=== PATIENT | male | born 1950 | race Caucasian/White ===

== ENCOUNTER → 2017-10-23 | Outpatient (CLI) | payer MEDICARE, OTHER ==
--- NOTE | 2017-10-23 08:53 | US ---
EXAMINATION TYPE: US liver DATE OF EXAM: 10/23/2017 COMPARISON: CT CLINICAL HISTORY: R94.5 Abnormal Results Of Liver Function Studies; on medication for allergy, takes Vitamin D EXAM MEASUREMENTS: Liver Length: 13.5 cm Gallbladder Wall: 0.2 cm CBD: 0.3 cm Right Kidney: 12.0 x 7.2 x 4.7 cm Pancreas: not visualized due to overlying bowel gas Liver: left lateal lobe cyst = 0.6 x 0.9 x 0.8cm; mild attenuation noted posteriorly. This most comm only relates to hepatic steatosis and appears mild in degree. This limits evaluation for underlying h epatic masses. Gallbladder: wnl Evidence for sonographic Hammonds's sign: No CBD: wnl Right Kidney: wnl IMPRESSION: 1. Mild heterogeneous echotexture of the hepatic parenchyma most commonly relating to hepatic steatos is. 2. Subcentimeter hepatic cyst. 3. No sonographic evidence of cholelithiasis or acute cholecystitis.
== END | disposition home or self-care (01) ==
LOC: RADUSWWP 07:14
PROVIDERS: ATTEND Internal Medicine Gastroenterology
DX: K76.89 Other specified diseases of liver (principal)
CPT/HCPCS: 76705

== ENCOUNTER → 2017-11-12 | Outpatient (CLI) | payer MEDICARE, OTHER ==
[2017-11-12 16:51] LABS: Alpha Fetoprotein, Tumor Mkr 2.9 ng/mL (0.0-7.9)
[2017-11-13 10:59] LABS: Hepatitis BE Antigen POS (Negative)
[2017-11-13 11:01] LABS: Hepatitis BE Antibody NEG (Negative)
== END | disposition home or self-care (01) ==
LOC: LABWHC1 10:53
PROVIDERS: ATTEND Physician Assistant
DX: B19.10 Unspecified viral hepatitis B without hepatic coma (principal)
CPT/HCPCS: 36415; 82105; 86704; 86706; 86707; 87340; 87350

== ENCOUNTER → 2017-11-19 | Outpatient (CLI) | payer MEDICARE, OTHER ==
[2017-11-19 12:48] LABS: Albumin 4.5 g/dL (3.5-5.0); Bilirubin, Delta 0.5 mg/dL (0.0-0.2); Bilirubin,Unconjugated 0.4 mg/dL (0.0-1.1); Total Bilirubin 0.9 mg/dL (0.2-1.3)
[2017-11-20 13:47] LABS: Hepatitis B Virus DNA DETECTED (Not detected); Log HBV IU/mL 8.54 (<1.00)
== END | disposition home or self-care (01) ==
LOC: LABWHC1 11:56
PROVIDERS: ATTEND Physician Assistant
DX: B19.10 Unspecified viral hepatitis B without hepatic coma (principal)
CPT/HCPCS: 36415; 80076; 87517

== ENCOUNTER → 2018-05-20 | Outpatient (CLI) | payer MEDICARE, OTHER ==
[2018-05-20 13:32] LABS: HCT 42.7 % (39.0-53.0); HGB 14.7 gm/dL (13.0-17.5); MCH 32.4 pg (25.0-35.0); MCHC 34.5 g/dL (31.0-37.0); MCV 93.8 fL (80.0-100.0); Mean Platelet Volume 8.2; Platelet Count 156 k/uL (150-450); RBC 4.55 m/uL (4.30-5.90); RDW 13.2 % (11.5-15.5)
[2018-05-20 13:54] LABS: Albumin 4.2 g/dL (3.5-5.0); Bilirubin, Delta 0.3 mg/dL (0.0-0.2); Bilirubin,Unconjugated 0.8 mg/dL (0.0-1.1); Total Bilirubin 1.1 mg/dL (0.2-1.3); Total Protein 7.4 g/dL (6.3-8.2)
[2018-05-21 13:29] LABS: Hepatitis BE Antigen POS (Negative)
[2018-05-23 07:29] LABS: Hepatitis B Virus DNA DETECTED (Not detected); Log HBV IU/mL 8.28 (<1.00)
== END | disposition home or self-care (01) ==
LOC: LABWHC1 12:17
PROVIDERS: ATTEND Physician Assistant
DX: B18.1 Chronic viral hepatitis B without delta-agent (principal)
CPT/HCPCS: 36415; 80076; 82105; 85027; 87350; 87517

== ENCOUNTER → 2018-08-23 | Outpatient (CLI) | payer MEDICARE, OTHER ==
[2018-08-23 11:25] LABS: HCT 44.1 % (39.0-53.0); HGB 14.5 gm/dL (13.0-17.5); MCH 30.8 pg (25.0-35.0); MCHC 32.8 g/dL (31.0-37.0); MCV 93.7 fL (80.0-100.0); Mean Platelet Volume 7.3; Platelet Count 173 k/uL (150-450); RBC 4.71 m/uL (4.30-5.90); RDW 13.1 % (11.5-15.5); WBC 7.8 k/uL (3.8-10.6)
[2018-08-23 16:27] LABS: Albumin 4.4 g/dL (3.80-4.90); Albumin/Globulin Ratio 1.76 (1.20-2.10); Bilirubin, Conjugated 0.3 mg/dL (0.20-0.40); Bilirubin,Unconjugated 0.7 mg/dL; Globulin 2.5 g/dL (1.6-3.3); Total Protein 6.9 g/dL (6.2-8.2)
[2018-08-26 16:38] LABS: Hepatitis B Virus DNA DETECTED (Not detected); Log HBV IU/mL 8.15 (<1.00)
[2018-08-27 13:10] LABS: Liver/Kidney Microsome Antibod 1.1 UNITS (<=20)
[2018-08-27 13:39] LABS: Hepatitis BE Antigen POS (Negative)
== END | disposition home or self-care (01) ==
LOC: LABWHC1 10:31
PROVIDERS: ATTEND Physician Assistant
DX: B18.1 Chronic viral hepatitis B without delta-agent (principal)
CPT/HCPCS: 36415; 80076; 82105; 85027; 86376; 87350; 87517

== ENCOUNTER → 2018-11-30 | Outpatient (CLI) | payer MEDICARE, OTHER ==
[2018-11-30 08:53] LABS: HCT 41.6 % (39.0-53.0); HGB 14.1 gm/dL (13.0-17.5); MCH 31.5 pg (25.0-35.0); MCV 92.8 fL (80.0-100.0); Mean Platelet Volume 8.1; Platelet Count 177 k/uL (150-450); RBC 4.49 m/uL (4.30-5.90); RDW 13.9 % (11.5-15.5); WBC 6.5 k/uL (3.8-10.6)
[2018-11-30 08:57] LABS: Prothrombin Time 10.8 sec (9.0-12.0)
[2018-11-30 16:42] LABS: Albumin 4.6 g/dL (3.80-4.90); Bilirubin, Conjugated 0.2 mg/dL (0.20-0.40); Bilirubin,Unconjugated 0.4 mg/dL; Globulin 2.3 g/dL (1.6-3.3); Total Bilirubin 0.6 mg/dL (0.3-1.2); Total Protein 6.9 g/dL (6.2-8.2)
[2018-11-30 17:01] LABS: Alpha Fetoprotein, Tumor Mkr <2.5 ng/mL (0.0-7.9)
[2018-11-30 21:12] LABS: Hepatitis B Core IgM Non-Reactive (Non-Reactive)
[2018-12-03 13:33] LABS: Hepatitis B Virus DNA DETECTED (Not detected); Log HBV IU/mL 3.71 (<1.00)
[2018-12-03 13:53] LABS: Hepatitis BE Antigen POS (Negative)
== END | disposition home or self-care (01) ==
LOC: LABWHC1 08:16
PROVIDERS: ATTEND Physician Assistant
DX: B18.1 Chronic viral hepatitis B without delta-agent (principal)
CPT/HCPCS: 36415; 80076; 82105; 85027; 85610; 86704; 86705; 87340; 87350; 87517

== ENCOUNTER → 2018-12-19 | Outpatient (CLI) | payer MEDICARE, OTHER ==
--- NOTE | 2018-12-19 10:00 | US ---
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 Chronic viral hep B EXAM MEASUREMENTS: Liver Length: 14.4 cm Gallbladder Wall: 0.2 cm CBD: 0.5 cm Right Kidney: 12.2 x 5.1 x 5.7 cm Pancreas: obscured by overlying midline bowel gas Liver: course echotexture, 1.1cm cyst left lobe Gallbladder: wnl Evidence for sonographic Hammonds's sign: no CBD: wnl Right Kidney: wnl IMPRESSION: 1. Small simple cyst left lobe liver. There is a coarse echo pattern of liver which can be seen with fatty infiltration, hepatitis or diffuse hepatocellular disease.
== END | disposition home or self-care (01) ==
LOC: RADUSWWP 09:28
DX: K76.89 Other specified diseases of liver (principal); B18.1 Chronic viral hepatitis B without delta-agent
CPT/HCPCS: 76705

== ENCOUNTER → 2019-06-02 | Outpatient (CLI) | payer MEDICARE, OTHER ==
[2019-06-02 08:41] LABS: HCT 42.4 % (39.0-53.0); HGB 14.7 gm/dL (13.0-17.5); MCH 32.1 pg (25.0-35.0); MCHC 34.7 g/dL (31.0-37.0); MCV 92.4 fL (80.0-100.0); Mean Platelet Volume 6.7; Platelet Count 181 k/uL (150-450); RBC 4.59 m/uL (4.30-5.90); RDW 12.6 % (11.5-15.5); WBC 6.8 k/uL (3.8-10.6)
[2019-06-02 08:45] LABS: INR 0.9 (<1.2); Prothrombin Time 10.2 sec (9.0-12.0)
[2019-06-02 16:51] LABS: Albumin 4.8 g/dL (3.80-4.90); Albumin/Globulin Ratio 2.18 (1.60-3.17); Bilirubin, Conjugated 0.3 mg/dL (0.20-0.40); Bilirubin,Unconjugated 0.5 mg/dL; Globulin 2.2 g/dL (1.6-3.3); Total Bilirubin 0.8 mg/dL (0.2-1.2)
[2019-06-02 16:52] LABS: Alpha Fetoprotein, Tumor Mkr <2.5 ng/mL (0.0-7.9)
[2019-06-02 21:30] LABS: Hepatitis B Core IgM Non-Reactive (Non-Reactive)
[2019-06-03 13:11] LABS: Hepatitis BE Antigen POS (Negative)
[2019-06-03 14:55] LABS: Hepatitis B Surface Antigen Reactive (Non-Reactive)
[2019-06-03 16:18] LABS: Hepatitis B Virus DNA DETECTED (Not detected); Hepatitis B Virus DNA, Quant <10 IU/mL (<10); Log HBV IU/mL <1.00 (<1.00)
== END | disposition home or self-care (01) ==
LOC: LABWHC1 07:58
PROVIDERS: ATTEND Physician Assistant
DX: B18.1 Chronic viral hepatitis B without delta-agent (principal)
CPT/HCPCS: 36415; 80076; 82105; 85027; 85610; 86704; 86705; 87340; 87350; 87517

== ENCOUNTER → 2019-12-01 | Outpatient (CLI) | payer MEDICARE, OTHER ==
[2019-12-01 12:15] LABS: HCT 42.8 % (39.0-53.0); HGB 14.4 gm/dL (13.0-17.5); MCH 31.7 pg (25.0-35.0); MCHC 33.7 g/dL (31.0-37.0); Mean Platelet Volume 8.4; Platelet Count 160 k/uL (150-450); RBC 4.55 m/uL (4.30-5.90); RDW 12.6 % (11.5-15.5); WBC 6.7 k/uL (3.8-10.6)
[2019-12-01 12:23] LABS: Prothrombin Time 10.6 sec (9.0-12.0)
[2019-12-01 18:45] LABS: African American GFR (CKD) 100.6 (60.0-200.0); Albumin 4.6 g/dL (3.80-4.90); Bilirubin, Conjugated 0.3 mg/dL (0.20-0.40); Bilirubin,Unconjugated 0.5 mg/dL; Globulin 2.3 g/dL (1.6-3.3); Non-African American GFR(CKD) 86.8 (60.0-200.0); Total Bilirubin 0.8 mg/dL (0.2-1.2); Total Protein 6.9 g/dL (6.2-8.2)
[2019-12-01 18:58] LABS: Alpha Fetoprotein, Tumor Mkr <2.5 ng/mL (0.0-7.9)
[2019-12-02 13:03] LABS: Hepatitis B Surface Antigen Reactive (Non-Reactive)
== END | disposition home or self-care (01) ==
LOC: LABWHC1 11:40
PROVIDERS: ATTEND Internal Medicine Gastroenterology
DX: B18.1 Chronic viral hepatitis B without delta-agent (principal)
CPT/HCPCS: 36415; 80076; 82105; 82565; 84520; 85027; 85610; 86704; 87340; 87350; 87517

== ENCOUNTER → 2020-02-03 | Outpatient (CLI) | payer MEDICARE, OTHER ==
--- NOTE | 2020-02-03 11:09 | US ---
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 Chronic Hepatitis EXAM MEASUREMENTS: Liver Length: 13.9 cm Gallbladder Wall: 0.3 cm CBD: 0.4 cm Right Kidney: 11.9 x 3.8 x 5.2 cm Pancreas: Obscured by bowel gas Liver: cystic area left lobe = 1.0cm Gallbladder: no evidence of hydronephrosis Evidence for sonographic Hammonds's sign: no CBD: appears wnl Right Kidney: no evidence of hydronephrosis IMPRESSION: Hepatic cysts.
== END | disposition home or self-care (01) ==
LOC: RADUSWWP 10:08
PROVIDERS: ATTEND Internal Medicine Gastroenterology
DX: K76.89 Other specified diseases of liver (principal); B18.1 Chronic viral hepatitis B without delta-agent
CPT/HCPCS: 76705

== ENCOUNTER → 2020-06-28 | Outpatient (CLI) | payer MEDICARE, OTHER ==
[2020-06-28 12:49] LABS: HCT 44.8 % (39.0-53.0); HGB 15.4 gm/dL (13.0-17.5); MCH 32.2 pg (25.0-35.0); MCHC 34.4 g/dL (31.0-37.0); MCV 93.5 fL (80.0-100.0); Mean Platelet Volume 8.4; Platelet Count 182 k/uL (150-450); RBC 4.79 m/uL (4.30-5.90); RDW 12.6 % (11.5-15.5); WBC 7.4 k/uL (3.8-10.6)
[2020-06-28 13:04] LABS: Prothrombin Time 10.1 sec (9.0-12.0)
[2020-06-28 18:30] LABS: Albumin 4.5 g/dL (3.80-4.90); Albumin/Globulin Ratio 1.96 (1.60-3.17); Bilirubin, Conjugated 0.3 mg/dL (0.20-0.40); Bilirubin,Unconjugated 0.4 mg/dL; Globulin 2.3 g/dL (1.6-3.3); Total Bilirubin 0.7 mg/dL (0.2-1.2); Total Protein 6.8 g/dL (6.2-8.2)
[2020-06-28 18:54] LABS: Alpha Fetoprotein, Tumor Mkr <2.5 ng/mL (0.0-7.9)
[2020-06-28 22:56] LABS: Hepatitis B Core IgM Non-Reactive (Non-Reactive)
[2020-06-29 13:11] LABS: Hepatitis B Surface Antigen Reactive (Non-Reactive)
== END | disposition home or self-care (01) ==
LOC: LABWHC1 09:48
PROVIDERS: ATTEND Physician Assistant
DX: B18.1 Chronic viral hepatitis B without delta-agent (principal)
CPT/HCPCS: 36415; 80076; 82105; 85027; 85610; 86704; 86705; 87340; 87350

== ENCOUNTER → 2020-12-06 | Outpatient (CLI) | payer MEDICARE ==
--- NOTE | 2020-12-06 10:00 | US ---
EXAMINATION TYPE: US liver DATE OF EXAM: 12/06/2020 COMPARISON: 02/03/2020 CLINICAL HISTORY: Chronic Hep B B18.1. Patient stated is in remission for Hepatitis EXAM MEASUREMENTS: Liver Length: 15.1 cm Gallbladder Wall: 0.2 cm CBD: 0.3 cm Right Kidney: 12.0 x 5.4 x 4.8 cm Pancreas: hyperechoic with tail obscured by overlying bowel gas Liver: right lobe attenuated posteriorly; small left lobe cyst seen = 0.9 x 1.0 x 0.9cm Gallbladder: wnl Evidence for sonographic Hammonds's sign: no CBD: wnl Right Kidney: No hydronephrosis or masses seen IMPRESSION: 1. Coarsened echo pattern to the liver can be associated with hepatic steatosis or hepatitis correlat e clinically. 2. Simple hepatic cyst
== END | disposition home or self-care (01) ==
LOC: RADUSWWP 09:13
PROVIDERS: ATTEND Internal Medicine Gastroenterology
DX: K76.89 Other specified diseases of liver (principal)
CPT/HCPCS: 76705

== ENCOUNTER → 2020-12-31 | Outpatient (CLI) | payer MEDICARE ==
[2020-12-31 23:18] LABS: HCT 45.7 % (39.6-50.0); HGB 15.1 g/dL (13.0-17.0); MCH 30.9 pg (27.0-32.0); MCV 93.5 fL (80.0-97.0); Mean Platelet Volume 11.6 fL (9.5-12.2); Platelet Count 214 X 10*3/uL (140-440); RBC 4.89 X 10*6/uL (4.40-5.60); RDW 12.1 % (11.5-14.5); WBC 8.53 X 10*3/uL (4.50-10.00)
[2021-01-01 02:03] LABS: INR 0.94 (0.90-1.11); Prothrombin Time 10.3 sec (9.9-11.9)
[2021-01-01 06:09] LABS: Albumin 5.3 g/dL (3.80-4.90); Albumin/Globulin Ratio 2.12 (1.60-3.17); Bilirubin, Conjugated 0.3 mg/dL (0.20-0.40); Bilirubin,Unconjugated 0.6 mg/dL; Globulin 2.5 g/dL (1.6-3.3); Total Bilirubin 0.9 mg/dL (0.3-1.2); Total Protein 7.8 g/dL (6.2-8.2)
[2021-01-01 10:22] LABS: Alpha Fetoprotein, Tumor Mkr <2.5 ng/mL (0.0-7.9)
[2021-01-04 04:00] LABS: Hepatitis BE Antigen Nonreactive (Nonreacitve)
[2021-01-04 13:55] LABS: Hepatitis B Surface Antigen Reactive (Non-Reactive)
[2021-01-06 14:01] LABS: Hepatitis B Virus DNA Not detected (Not detected); Hepatitis B Virus DNA, Quant <10 IU/mL (<10); Log HBV IU/mL <1.00 (<1.00)
== END | disposition home or self-care (01) ==
LOC: LABWHC1 14:48
PROVIDERS: ATTEND Physician Assistant
DX: B18.1 Chronic viral hepatitis B without delta-agent (principal)
CPT/HCPCS: 36415; 80076; 82105; 85027; 85610; 86704; 87340; 87350; 87517

== ENCOUNTER → 2021-07-27 | Outpatient (CLI) | payer MEDICARE ==
[2021-07-27 18:15] LABS: HCT 44.3 % (39.6-50.0); HGB 14.6 g/dL (13.0-17.0); MCH 31.1 pg (27.0-32.0); MCV 94.3 fL (80.0-97.0); Mean Platelet Volume 11.2 fL (9.5-12.2); Platelet Count 181 X 10*3/uL (140-440); RDW 12.4 % (11.5-14.5); WBC 8.91 X 10*3/uL (4.50-10.00)
[2021-07-27 18:40] LABS: INR 0.96 (0.90-1.11); Prothrombin Time 10.9 sec (9.9-11.9)
[2021-07-27 19:49] LABS: ALT 12 U/L (10-49); AST 20 U/L (14-35); Albumin 4.9 g/dL (3.8-4.9); Albumin/Globulin Ratio 2.08 (1.60-3.17); Bilirubin, Conjugated <0.20 mg/dL (0.20-0.40); Globulin 2.3 g/dL (1.6-3.3); Total Protein 7.2 g/dL (6.2-8.2)
[2021-07-27 19:50] LABS: Alkaline Phosphatase 80 U/L (41-126)
[2021-07-27 20:02] LABS: Hepatitis B Core IgM Nonreactive (Nonreactive); Hepatitis B Surface AB- Quant 93.2 mIU/mL; Hepatitis B Surface Antibody Reactive (Nonreactive)
[2021-07-27 23:27] LABS: Hepatitis B Surface Antigen Confirmed reactive (Nonreactive)
[2021-07-28 00:33] LABS: Alpha Fetoprotein, Tumor Mkr <1.82 ng/mL (0.00-7.90)
[2021-07-28 06:44] LABS: Hepatitis BE Antibody REACTIVE (Nonreactive); Hepatitis BE Antigen Nonreactive (Nonreacitve)
== END | disposition home or self-care (01) ==
LOC: LABWHC1 11:04
PROVIDERS: ATTEND Nurse Practitioner Family
DX: B18.1 Chronic viral hepatitis B without delta-agent (principal)
CPT/HCPCS: 36415; 80076; 82105; 85027; 85610; 86704; 86705; 86706; 86707; 87340; 87350; 87517

== ENCOUNTER → 2021-08-26 | Outpatient (CLI) | payer MEDICARE ==
--- NOTE | 2021-08-26 08:52 | US ---
EXAMINATION TYPE: US liver DATE OF EXAM: 08/26/2021 COMPARISON: CT 2014. Prior ultrasound December 06, 2020 CLINICAL HISTORY: B18.1 Chronic viral hepatitis B without delta. chronic hepatitis EXAM MEASUREMENTS: Liver Length: 13.7 cm Gallbladder Wall: 0.2 cm CBD: 0.4 cm Right Kidney: 12.5 x 4.2 x 4.7 cm Pancreas: Obscured by bowel gas Liver: cystic area left lobe = 0.9 x 0.9 x 0.9cm Gallbladder: no evidence of stones Evidence for sonographic Hammonds's sign: no CBD: appears wnl Right Kidney: no evidence of hydronephrosis Visualized liver redemonstrated heterogeneously hyperechoic. Incidental subcentimeter thin-walled cys t in the left hepatic lobe is redemonstrated. No new mass or ductal dilatation seen on images saved. No new surrounding ascites. Gallbladder has distended margins without intraluminal shadowing mobile g allstones. No right-sided hydronephrosis. IMPRESSION: Heterogeneous hyperechoic appearance of liver consistent with diffuse fatty infiltration and/or underlying hepatocellular disease redemonstrated. No significant change from prior studies.
== END | disposition home or self-care (01) ==
LOC: RADUSWWP 08:14
PROVIDERS: ATTEND Internal Medicine Gastroenterology
DX: K76.0 Fatty (change of) liver, not elsewhere classified (principal)
CPT/HCPCS: 76705

== ENCOUNTER → 2022-02-03 | Outpatient (CLI) | payer MEDICARE ==
[2022-02-03 19:09] LABS: HCT 43.3 % (39.6-50.0); HGB 14.1 g/dL (13.0-17.0); MCH 30.9 pg (27.0-32.0); MCHC 32.6 g/dL (32.0-37.0); MCV 94.7 fL (80.0-97.0); Mean Platelet Volume 11.7 fL (9.5-12.2); NRBC Per 100 WBC 0 /100 WBCS (0.0-0.0); Platelet Count 190 X 10*3/uL (140-440); RBC 4.57 X 10*6/uL (4.40-5.60); RDW 12.8 % (11.5-14.5); WBC 7.92 X 10*3/uL (4.50-10.00)
[2022-02-03 19:46] LABS: ALT 11 U/L (10-49); AST 20 U/L (14-35); Albumin 4.7 g/dL (3.8-4.9); Albumin/Globulin Ratio 1.88 (1.60-3.17); Alkaline Phosphatase 89 U/L (41-126); Bilirubin, Conjugated <0.20 mg/dL (0.20-0.40); Globulin 2.5 g/dL (1.6-3.3); Total Protein 7.2 g/dL (6.2-8.2)
[2022-02-03 19:53] LABS: INR 0.96 (0.90-1.11); Prothrombin Time 10.6 sec (9.9-11.9)
[2022-02-03 20:53] LABS: Hepatitis B Surface Antigen Confirmed reactive (Nonreactive)
[2022-02-03 21:03] LABS: Alpha Fetoprotein, Tumor Mkr <1.82 ng/mL (0.00-7.90)
== END | disposition home or self-care (01) ==
LOC: LABWHC1 11:38
PROVIDERS: ATTEND Internal Medicine Gastroenterology
DX: B18.1 Chronic viral hepatitis B without delta-agent (principal)
CPT/HCPCS: 36415; 80076; 82105; 85027; 85610; 87340

== ENCOUNTER 2022-04-30 13:56 | Emergency (ER) | payer MEDICARE ==
[2022-04-30 14:11] VITALS: TEMP 98.1
[2022-04-30] MEDS ORDERED: LIDOCAINE URO-JET JELLY 2% 5 ML KIT URETHRAL ONE (14:21)
--- NOTE | 2022-04-30 14:59 | ED ---
Male Urogenital HPI - General Chief complaint: Urogenital Stated complaint: Unable to urinate Time Seen by Provider: 04/30/22 14:10 Source: patient, RN notes reviewed Mode of arrival: ambulatory Limitations: no limitations - History of Present Illness Initial comments: 71-year-old male presents emergency Department with chief complaint of unable to urinate. Patient states that he has not urinated all day states has urgency and pressure lower abdomen. Patient states that this happened after surgery before. He has resisted seeing urology as he was told his PSA was elevated. Patient states that he did follow-up they did not find anything concerning. Patient does notice is had some dribbling, decreased stream. Patient denies any fevers chills no trauma patient offers no other complaints. - Related Data Home Medications Medication Instructions Recorded Confirmed Cholecalciferol [Vitamin D3 (25 1,000 unit PO DAILY 05/25/15 03/24/22 Mcg = 1000 Iu)] Multivit-Min/FA/Lycopen/Lutein 1 tab PO DAILY 05/25/15 03/24/22 [Centrum Silver Tablet] Entecavir 0.5 mg PO 2330 03/22/22 03/24/22 Previous Rx's Medication Instructions Recorded Tamsulosin [Flomax] 0.4 mg PO DAILY #14 cap 04/30/22 Allergies Allergy/AdvReac Type Severity Reaction Status Date / Time No Known Allergies Allergy Verified 04/30/22 14:11 Review of Systems ROS Statement: Those systems with pertinent positive or pertinent negative responses have been documented in the HPI. ROS Other: All systems not noted in ROS Statement are negative. Past Medical History Past Medical History: GERD/Reflux, Osteoarthritis (OA) Additional Past Medical History / Comment(s): Other HX: sepsis from appendicitis 05/2015, HEART MURMER, [place], History of Any Multi-Drug Resistant Organisms: None Reported Past Surgical History: Adenoidectomy, Tonsillectomy Additional Past Surgical History / Comment(s): Lap hector fundoplasty with ventral hernia repair with mesh. LEFT FOOT SURGERY-LESION REMOVED Past Anesthesia/Blood Transfusion Reactions: No Reported Reaction Past Psychological History: No Psychological Hx Reported Smoking Status: Former smoker Past Alcohol Use History: None Reported Past Drug Use History: None Reported - Past Family History Father Family Medical History: CVA/TIA Additional Family Medical History / Comment(s): PACEMAKER. Father at 87yrs. Mother Family Medical History: No Reported History, Dementia Additional Family Medical History / Comment(s): AGE 96 General Exam Limitations: no limitations General appearance: alert, in no apparent distress Head exam: Present: atraumatic, normocephalic, normal inspection Respiratory exam: Present: normal lung sounds bilaterally. Absent: respiratory distress, wheezes, rales, rhonchi, stridor Cardiovascular Exam: Present: normal rhythm, tachycardia, normal heart sounds. Absent: systolic murmur, diastolic murmur, rubs, gallop, clicks GI/Abdominal exam: Present: soft, distended, tenderness, normal bowel sounds. Absent: guarding, rebound, rigid Back exam: Absent: CVA tenderness (R), CVA tenderness (L) Course Vital Signs 04/30/22 14:06 Temperature 98.1 F Pulse Rate 124 H Respiratory 16 Rate Blood Pressure 140/101 O2 Sat by Pulse 98 Oximetry Medical Decision Making - Medical Decision Making 71-year-old male presents from for unable to urinate. Patient did have Seaman catheter inserted with no complications patient had relief of symptoms. Patient will be discharged with Seaman catheter, Flomax and follow-up with urology as he seen in the past - Lab Data Lab Results 04/30/22 Range/Units 14:39 Urine Color Light Yellow Urine Appearance Clear (Clear) Urine pH 5.0 (5.0-8.0) Ur Specific [place] 1.012 (1.001-1.035) Urine Protein Negative (Negative) Urine Glucose (UA) Negative (Negative) Urine Ketones Negative (Negative) Urine Blood Small H (Negative) Urine Nitrite Negative (Negative) Urine Bilirubin Negative (Negative) Urine Urobilinogen <2.0 (<2.0) mg/dL Ur Leukocyte Esterase Negative (Negative) Urine RBC 9 H (0-5) /hpf Urine WBC 1 (0-5) /hpf Urine Mucus Rare H (None) /hpf Disposition Clinical Impression: Urinary retention Disposition: HOME SELF-CARE Condition: Stable Instructions (If sedation given, give patient instructions): Urinary Retention in Men (ED) Additional Instructions: Please return to the Emergency Department if symptoms worsen or any other concerns. Prescriptions: Tamsulosin [Flomax] 0.4 mg PO DAILY #14 cap Is patient prescribed a controlled substance at d/c from ED?: No Referrals: Angelica Block III, MD [Primary Care Provider] - 1-2 days Time of Disposition: 15:31
[2022-04-30 15:15] LABS: Appearance,Urine Clear (Clear); Bilirubin,Urine Negative (Negative); Blood,Urine Small (Negative); Color,Urine Light Yellow; Glucose,Urine (UA) Negative (Negative); Ketones,Urine Negative (Negative); Leukocyte Esterase,Urine Negative (Negative); Mucus,Urine Rare /hpf; Nitrite,Urine Negative (Negative); Protein,Urine Negative (Negative); RBC,Urine 9 /hpf (0-5); Specific Gravity,Urine 1.012 (1.001-1.035); Urobilinogen,Urine <2.0 mg/dL (<2.0); WBC,Urine 1 /hpf (0-5)
[2022-04-30 17:54] VITALS: BP 152/94; PULSE 90; RESP 18
== END 2022-04-30 17:00 | disposition home or self-care (01) ==
LOC: EC 13:56
DX: R33.9 Retention of urine, unspecified (principal); K21.9 Gastro-esophageal reflux disease without esophagitis; Z86.73 Personal history of transient ischemic attack (TIA), and cerebral infarction without residual deficits; Z87.891 Personal history of nicotine dependence
CPT/HCPCS: 51702; 81001; 99283

== ENCOUNTER → 2022-07-26 | Outpatient (CLI) | payer MEDICARE ==
--- NOTE | 2022-07-26 09:28 | US ---
EXAMINATION TYPE: US liver DATE OF EXAM: 07/26/2022 COMPARISON: NONE CLINICAL HISTORY: B18.1 CHRONIC VIRAL HEPATITIS B. Chronic Hepatitis TECHNIQUE: Multiple sonographic images of the right upper quadrant are obtained. FINDINGS: EXAM MEASUREMENTS: Liver Length: 16.1 cm Gallbladder Wall: 0.2 cm CBD: 0.4 cm Right Kidney: 11.7 x 5.7 x 4.6 cm BOTTLE CARRIER NOTES: *Technical limitations due to large amount of overlying bowel content Pancreas: Obscured by bowel gas Liver: cystic area left lobe = 1.2 x 0.9 x 1.0cm Gallbladder: stones noted Evidence for sonographic Hammonds's sign: no CBD: limited evaluation Right Kidney: no evidence of hydronephrosis IMPRESSION: 1. Uncomplicated cholelithiasis
== END | disposition home or self-care (01) ==
LOC: RADUSWWP 07:30
PROVIDERS: ATTEND Internal Medicine Gastroenterology
DX: K80.20 Calculus of gallbladder without cholecystitis without obstruction (principal); B18.1 Chronic viral hepatitis B without delta-agent
CPT/HCPCS: 76705

== ENCOUNTER → 2022-08-09 | Outpatient (CLI) | payer MEDICARE ==
[2022-08-09 18:29] LABS: HCT 44.8 % (39.6-50.0); HGB 14.5 g/dL (13.0-17.0); MCH 30.3 pg (27.0-32.0); MCHC 32.4 g/dL (32.0-37.0); MCV 93.7 fL (80.0-97.0); Mean Platelet Volume 11.1 fL (9.5-12.2); NRBC Per 100 WBC 0 /100 WBCS (0.0-0.0); Platelet Count 197 X 10*3/uL (140-440); RBC 4.78 X 10*6/uL (4.40-5.60); RDW 12.5 % (11.5-14.5); WBC 8.59 X 10*3/uL (4.50-10.00)
[2022-08-09 19:28] LABS: Albumin 4.8 g/dL (3.8-4.9); Albumin/Globulin Ratio 2.01 (1.60-3.17); Bilirubin, Conjugated 0.27 mg/dL (0.20-0.40); Bilirubin,Unconjugated 0.64 mg/dL (0.20-1.00); Globulin 2.4 g/dL (1.6-3.3); Total Bilirubin 0.9 mg/dL (0.30-1.20); Total Protein 7.1 g/dL (6.2-8.2)
[2022-08-09 19:36] LABS: INR 0.94 (0.90-1.11); Prothrombin Time 10.6 sec (9.9-11.9)
[2022-08-09 20:50] LABS: Hepatitis B Surface Antigen Confirmed reactive (Nonreactive)
[2022-08-09 21:11] LABS: Alpha Fetoprotein, Tumor Mkr <1.82 ng/mL (0.00-7.90)
== END | disposition home or self-care (01) ==
LOC: LABWHC1 13:22
PROVIDERS: ATTEND Nurse Practitioner Family
DX: B18.1 Chronic viral hepatitis B without delta-agent (principal)
CPT/HCPCS: 36415; 80076; 82105; 85027; 85610; 87340

== ENCOUNTER → 2022-08-25 | Outpatient (CLI) | payer MEDICARE | END | disposition home or self-care (01) | LOC: LABWHC1 13:03 | PROVIDERS: ATTEND Urology | DX: R97.20 Elevated prostate specific antigen [PSA] (principal) | CPT/HCPCS: 36415; 84153 ==

== ENCOUNTER → 2023-02-05 | Outpatient (CLI) | payer MEDICARE ==
--- NOTE | 2023-02-05 10:42 | US ---
EXAMINATION TYPE: US liver DATE OF EXAM: 02/05/2023 COMPARISON: 07/26/2022 CLINICAL INDICATION: Male, 72 years old with history of B18.1 chronic viral hep B wo delta-agent; Chr onic Hep B TECHNIQUE: Multiple sonographic images of the right upper quadrant are obtained. FINDINGS: EXAM MEASUREMENTS: Liver Length: 15.8 cm Gallbladder Wall: 0.2 cm CBD: 0.5 cm Right Kidney: 12.7 x 6.0 x 5.6 cm DYNAMOMETER REPAIRER NOTES: Pancreas: Obscured by bowel gas Liver: Cyst left lobe as visualized on prior= 1.1 x 0.9 x 1.3 cm, stable. Calcification left lobe= 0 .4 cm. Posterior shadowing is evident. Liver has coarse echotexture Gallbladder: Multiple, mobile gallstones as visualized on prior Evidence for sonographic Hammonds's sign: No CBD: wnl Right Kidney: wnl IMPRESSION: 1. Hepatic cyst 2. Hepatic calcification. 3. Cholelithiasis
== END | disposition home or self-care (01) ==
LOC: RADUSWWP 08:55
PROVIDERS: ATTEND Internal Medicine Gastroenterology
DX: B18.1 Chronic viral hepatitis B without delta-agent (principal); K76.89 Other specified diseases of liver; K80.20 Calculus of gallbladder without cholecystitis without obstruction
CPT/HCPCS: 76705

== ENCOUNTER → 2023-02-08 | Outpatient (CLI) | payer MEDICARE ==
[2023-02-08 12:38] LABS: Prothrombin Time 10.3 sec (9.0-12.0)
[2023-02-08 16:30] LABS: HCT 43.7 % (39.6-50.0); HGB 14.7 d/dL (12.0-15.0); MCH 31.4 pg (27.0-32.0); MCHC 33.6 d/dL (32.0-37.0); MCV 93.4 FL (80.0-97.0); Mean Platelet Volume 11.3 FL (9.5-12.2); NRBC Per 100 WBC 0 X 10*3/uL (0.00-0.01); Platelet Count 199 X 10*3/uL (140-440); RBC 4.68 X 10*6/uL (4.40-5.60); RDW 12.5 % (11.5-14.5); WBC 7.85 X 10*3/uL (4.50-10.00)
[2023-02-08 17:09] LABS: Albumin 4.6 d/dL (3.8-4.9); Albumin/Globulin Ratio 1.84 Ratio (1.60-3.17); Bilirubin, Conjugated 0.21 mg/dL (0.20-0.40); Bilirubin,Unconjugated 0.49 mg/dL (0.20-1.00); Globulin 2.5 d/dL (1.6-3.3); Total Bilirubin 0.7 mg/dL (0.3-1.2); Total Protein 7.1 d/dL (6.2-8.2)
[2023-02-08 18:29] LABS: Alpha Fetoprotein, Tumor Mkr <3.00 ng/mL (0.00-7.90)
[2023-02-08 19:42] LABS: Hepatitis B Surface Antigen Conf_React
[2023-02-09 14:11] LABS: Hepatitis B Virus DNA Not detected (Not detected); Hepatitis B Virus DNA, Quant <10 IU/mL (<10); Log HBV IU/mL <1.00 (<1.00)
== END | disposition home or self-care (01) ==
LOC: LABWHC1 11:41
PROVIDERS: ATTEND Internal Medicine Cardiovascular Disease
DX: B18.1 Chronic viral hepatitis B without delta-agent (principal)
CPT/HCPCS: 36415; 80076; 82105; 85027; 85610; 87340; 87517

== ENCOUNTER 2023-05-03 23:18 | Emergency (ER) | payer MEDICARE ==
[2023-05-03 23:25] LABS: Glucose,Whole Blood 122 mg/dL (70-110)
[2023-05-03 23:32] VITALS: TEMP 98
[2023-05-03] MEDS ORDERED: SODIUM CHLORIDE 0.9% 500 ML 500 ML IV STA (23:45)
--- NOTE | 2023-05-03 23:47 | ED ---
Syncope HPI - General Chief Complaint: Syncope Stated Complaint: Syncope Time Seen by Provider: 05/03/23 23:25 Source: patient, EMS Mode of arrival: EMS Limitations: no limitations - History of Present Illness Initial Comments: This patient is 72-year-old man who presents to have evaluation after having passed out. The patient states he had been talking to a neighbor when he felt funny. He states that he started getting lightheaded and felt he was going to pass out. He tried to go inside his residence, but states that the next thing he knew he was waking up on the ground with his neighbor standing next to him. Patient denies having chest pain or palpitations. No nausea or vomiting, no diaphoresis or dyspnea. Patient states he feels back at baseline now. MD Complaint: loss of consciousness -: minutes(s) Prodromal Symptoms: lightheaded -: second(s) Witnessed: yes - by bystander Injuries Sustained Associated with Event: None Current Symptoms: back to baseline Context: standing up Treatments Prior to Arrival: none - Related Data Home Medications Medication Instructions Recorded Confirmed Cholecalciferol [Vitamin D3 (25 1,000 unit PO DAILY 05/25/15 03/24/22 Mcg = 1000 Iu)] Multivit-Min/FA/Lycopen/Lutein 1 tab PO DAILY 05/25/15 03/24/22 [Centrum Silver Tablet] Entecavir 0.5 mg PO 2330 03/22/22 03/24/22 Previous Rx's Medication Instructions Recorded Tamsulosin [Flomax] 0.4 mg PO DAILY #14 cap 04/30/22 Allergies Allergy/AdvReac Type Severity Reaction Status Date / Time No Known Allergies Allergy Verified 04/30/22 14:11 Review of Systems ROS Statement: Those systems with pertinent positive or pertinent negative responses have been documented in the HPI. ROS Other: All systems not noted in ROS Statement are negative. Constitutional: Denies: fever, chills, weakness Eyes: Denies: vision change Respiratory: Denies: cough, dyspnea Cardiovascular: Reports: syncope. Denies: chest pain, palpitations, orthopnea, edema Gastrointestinal: Denies: abdominal pain, vomiting, diarrhea, melena, denise tochezia Genitourinary: Denies: dysuria, hematuria Musculoskeletal: Denies: back pain Skin: Denies: rash Neurological: Denies: headache, weakness Past Medical History Past Medical History: GERD/Reflux, Osteoarthritis (OA) Additional Past Medical History / Comment(s): Other HX: sepsis from appendicitis 05/2015, HEART MURMER, [place], Hepatitis-in remission History of Any Multi-Drug Resistant Organisms: None Reported Past Surgical History: Adenoidectomy, Tonsillectomy Additional Past Surgical History / Comment(s): Lap hector fundoplasty with ventral hernia repair with mesh. LEFT FOOT SURGERY-LESION REMOVED Past Anesthesia/Blood Transfusion Reactions: No Reported Reaction Past Psychological History: No Psychological Hx Reported Smoking Status: Former smoker Past Alcohol Use History: Occasional Past Drug Use History: Marijuana - Past Family History Father Family Medical History: CVA/TIA Additional Family Medical History / Comment(s): PACEMAKER. Father at 87yrs. Mother Family Medical History: No Reported History, Dementia Additional Family Medical History / Comment(s): AGE 96 General Exam Limitations: no limitations General appearance: alert, in no apparent distress Head exam: Present: atraumatic, normocephalic Eye exam: Present: normal appearance Neck exam: Present: normal inspection Respiratory exam: Present: normal lung sounds bilaterally. Absent: respiratory distress, wheezes, rales, rhonchi, stridor Cardiovascular Exam: Present: regular rate, normal rhythm, normal heart sounds. Absent: systolic murmur, diastolic murmur, rubs, gallop GI/Abdominal exam: Present: soft. Absent: distended, tenderness, guarding, rebound, rigid, mass Extremities exam: Present: normal inspection, normal capillary refill. Absent: pedal edema, calf tenderness Back exam: Present: normal inspection. Absent: CVA tenderness (R), CVA tenderness (L) Neurological exam: Present: alert Skin exam: Present: warm, dry, intact, normal color. Absent: rash Course Vital Signs 05/03/23 05/03/23 05/04/23 23:20 23:25 01:12 Temperature 98 F Pulse Rate 78 77 69 Respiratory 18 20 18 Rate Blood Pressure 109/77 113/81 114/77 O2 Sat by Pulse 99 98 97 Oximetry 05/04/23 03:18 Temperature Pulse Rate 61 Respiratory 18 Rate Blood Pressure 108/69 O2 Sat by Pulse 100 Oximetry EKG Findings - EKG Results: EKG: interpreted by ERMD, WNL, sinus rhythm (Rate 65 bpm), normal axis, normal QRS, normal ST/T Medical Decision Making - Medical Decision Making This patient is 72-year-old man presenting after syncopal episode. The patient's workup here is unremarkable. We discussed observation admission for cardiac monitoring but at this point patient feels well and wants go home. We discussed appropriate further care and follow-up The patient had chest x-ray which I interpreted as negative for infiltrate, pneumothorax, congestive heart failure Was pt. sent in by a medical professional or institution (, JEFF, COAL GASIFICATION TECHNICIAN, urgent care, hospital, or halfway...) When possible be specific @ -[No] Did you speak to anyone other than the patient for history (EMS, parent, family, police, friend...)? What history was obtained from this source @ -[No] Did you review nursing and triage notes (agree or disagree)? Why? @ -[I reviewed and agree with nursing and triage notes] Were old charts reviewed (outside hosp., previous admission, EMS record, old EKG, old radiological studies, urgent care reports/EKG's, halfway records)? Report findings @ -[No old charts were reviewed] Differential Diagnosis (chest pain, altered mental status, abdominal pain women, abdominal pain men, vaginal bleeding, weakness, fever, dyspnea, syncope, headache, dizziness, GI bleed, back pain, seizure, CVA, palpatations, mental health, musculoskeletal)? @ -[Differential Syncope: Valvular disease, hypertrophic cardiomyopathy, pulmonary embolism, tamponade, tachycardia, bradycardia, AL, hypovolemia, hemorrhage, dissection, anemia, intracranial hemorrhage, seizure, hypoglycemia, carbon monoxide poisoning, this is not meant to be an all-inclusive list. EKG interpreted by me (3pts min.). @ -[I interpreted As above] X-rays interpreted by me (1pt min.). @ -[I interpreted as above CT interpreted by me (1pt min.). @ -[None done] U/S interpreted by me (1pt. min.). @ -[None done] What testing was considered but not performed or refused? (CT, X-rays, U/S, labs)? Why? @ -[None] What meds were considered but not given or refused? Why? @ -[None] Did you discuss the management of the patient with other professionals (professionals i.e. , PA, COAL GASIFICATION TECHNICIAN, lab, RT, psych nurse, hospital social worker, test manager, teacher, business banking officer, corrections caseworker)? Give summary @ -[No] Was smoking cessation discussed for >3mins.? @ -[No] Was critical care preformed (if so, how long)? @ -[No] Were there social determinants of health that impacted care today? How? (H omelessness, low income, unemployed, alcoholism, drug addiction, transportation, low edu. Level, literacy, decrease access to med. care, fci, rehab)? @ -[No] Was there de-escalation of care discussed even if they declined (Discuss DNR or withdrawal of care, Hospice)? DNR status @ -[No] What co-morbidities impacted this encounter? (DM, HTN, Smoking, COPD, CAD, Cancer, CVA, ARF, Chemo, Hep., AIDS, mental health diagnosis, sleep apnea, morbid obesity)? @ -[None] Was patient admitted / discharged? Hospital course, mention meds given and route, prescriptions, significant lab abnormalities, going to OR and other pertinent info. @ -[See above Undiagnosed new problem with uncertain prognosis? @ -[No] Drug Therapy requiring intensive monitoring for toxicity (Heparin, Nitro, Insulin, Cardizem)? @ -[No] Were any procedures done? @ -[No] Diagnosis/symptom? @ -[Acute syncopal episode Acute dehydration Acute, or Chronic, or Acute on Chronic? @ -[Acute Uncomplicated (without systemic symptoms) or Complicated (systemic symptoms)? @ -[Uncomplicated Side effects of treatment? @ -[No] Exacerbation, Progression, or Severe Exacerbation? @ -[No] Poses a threat to life or bodily function? How? (Chest pain, USA, AL, pneumonia, PE, COPD, DKA, ARF, appy, cholecystitis, CVA, Diverticulitis, Homicidal, Suicidal, threat to staff... and all critical care pts) @ -[There is a small chance of cardiac arrhythmia being life-threatening, no evidence of that during stay in emergency department by did offer admission that the patient declines. He will return should he experience any symptoms, otherwise to follow with cardiology - Lab Data Result diagrams: 05/03/23 23:24 05/03/23 23:24 Lab Results 09/28/23 09/28/23 09/28/23 Range/Units 23:24 23:24 23:24 WBC 6.8 (3.8-10.6) k/uL RBC 4.45 (4.30-5.90) m/uL Hgb 14.2 (13.0-17.5) gm/dL Hct 41.7 (39.0-53.0) % MCV 93.7 (80.0-100.0) fL MCH 31.8 (25.0-35.0) pg MCHC 34.0 (31.0-37.0) g/dL RDW 12.6 (11.5-15.5) % Plt Count 181 (150-450) k/uL MPV 8.6 Neutrophils % 59 % Lymphocytes % 28 % Monocytes % 11 % Eosinophils % 1 % Basophils % 1 % Neutrophils # 4.0 (1.3-7.7) k/uL Lymphocytes # 1.9 (1.0-4.8) k/uL Monocytes # 0.8 (0-1.0) k/uL Eosinophils # 0.1 (0-0.7) k/uL Basophils # 0.1 (0-0.2) k/uL Sodium 138 (137-145) mmol/L Potassium 3.9 (3.5-5.1) mmol/L Chloride 107 (98-107) mmol/L Carbon Dioxide 19 L (22-30) mmol/L Anion Gap 12 mmol/L BUN 22 H (9-20) mg/dL Creatinine 1.06 (0.66-1.25) mg/dL Est GFR (CKD-EPI)AfAm 81 (>60 ml/min/1.73 sqM) Est GFR (CKD-EPI)NonAf 70 (>60 ml/min/1.73 sqM) Glucose 123 H (74-99) mg/dL POC Glucose (mg/dL) 122 H (70-110) mg/dL POC Glu Die Maker Apprentice ID [place] Calcium 9.2 (8.4-10.2) mg/dL Total Bilirubin 0.8 (0.2-1.3) mg/dL AST 31 (17-59) U/L ALT 15 (4-49) U/L Alkaline Phosphatase 81 (38-126) U/L Troponin I (0.000-0.034) ng/mL Total Protein 7.4 (6.3-8.2) g/dL Albumin 4.4 (3.5-5.0) g/dL 05/03/23 Range/Units 23:24 WBC (3.8-10.6) k/uL RBC (4.30-5.90) m/uL Hgb (13.0-17.5) gm/dL Hct (39.0-53.0) % MCV (80.0-100.0) fL MCH (25.0-35.0) pg MCHC (31.0-37.0) g/dL RDW (11.5-15.5) % Plt Count (150-450) k/uL MPV Neutrophils % % Lymphocytes % % Monocytes % % Eosinophils % % Basophils % % Neutrophils # (1.3-7.7) k/uL Lymphocytes # (1.0-4.8) k/uL Monocytes # (0-1.0) k/uL Eosinophils # (0-0.7) k/uL Basophils # (0-0.2) k/uL Sodium (137-145) mmol/L Potassium (3.5-5.1) mmol/L Chloride (98-107) mmol/L Carbon Dioxide (22-30) mmol/L Anion Gap mmol/L BUN (9-20) mg/dL Creatinine (0.66-1.25) mg/dL Est GFR (CKD-EPI)AfAm (>60 ml/min/1.73 sqM) Est GFR (CKD-EPI)NonAf (>60 ml/min/1.73 sqM) Glucose (74-99) mg/dL POC Glucose (mg/dL) (70-110) mg/dL POC Glu Die Maker Apprentice ID Calcium (8.4-10.2) mg/dL Total Bilirubin (0.2-1.3) mg/dL AST (17-59) U/L ALT (4-49) U/L Alkaline Phosphatase (38-126) U/L Troponin I <0.012 (0.000-0.034) ng/mL Total Protein (6.3-8.2) g/dL Albumin (3.5-5.0) g/dL Disposition Clinical Impression: Syncope, Dehydration Disposition: HOME SELF-CARE Condition: Good Instructions (If sedation given, give patient instructions): Syncope (ED) Is patient prescribed a controlled substance at d/c from ED?: No Referrals: Angelica Block III, MD [Primary Care Provider] - 1-2 days
[2023-05-04 00:36] LABS: Basophils # (A) 0.1 k/uL (0-0.2); Basophils % (A) 1 %; Eosinophils # (A) 0.1 k/uL (0-0.7); Eosinophils % (A) 1 %; HCT 41.7 % (39.0-53.0); HGB 14.2 gm/dL (13.0-17.5); Lymphocytes # (A) 1.9 k/uL (1.0-4.8); Lymphocytes % (A) 28 %; MCH 31.8 pg (25.0-35.0); MCV 93.7 fL (80.0-100.0); Mean Platelet Volume 8.6; Monocytes # (A) 0.8 k/uL (0-1.0); Monocytes % (A) 11 %; Neutrophils % (A) 59 %; Platelet Count 181 k/uL (150-450); RBC 4.45 m/uL (4.30-5.90); RDW 12.6 % (11.5-15.5); WBC 6.8 k/uL (3.8-10.6)
[2023-05-04 00:44] LABS: ALT 15 U/L (4-49); AST 31 U/L (17-59); African American GFR (CKD) 81 (>60 ml/min/1.73 sqM); Albumin 4.4 g/dL (3.5-5.0); Alkaline Phosphatase 81 U/L (38-126); Anion Gap 12 mmol/L; Blood Urea Nitrogen 22 mg/dL (9-20); Calcium 9.2 mg/dL (8.4-10.2); Carbon Dioxide 19 mmol/L (22-30); Chloride 107 mmol/L (98-107); Glucose 123 mg/dL (74-99); Non-African American GFR(CKD) 70 (>60 ml/min/1.73 sqM); Potassium 3.9 mmol/L (3.5-5.1); Sodium 138 mmol/L (137-145); Total Bilirubin 0.8 mg/dL (0.2-1.3); Total Protein 7.4 g/dL (6.3-8.2)
[2023-05-04 01:14] VITALS: RESP 18
--- NOTE | 2023-05-04 02:09 | XR ---
EXAM: XR Chest, 2 Views CLINICAL HISTORY: ITS.REASON XR Reason: syncope TECHNIQUE: Frontal and lateral views of the chest. COMPARISON: No relevant prior studies available. FINDINGS: Lungs: No consolidation or mass. Pleural space: No effusion. Heart: No cardiomegaly. Bones/joints: No acute findings. IMPRESSION: No acute cardiopulmonary process.
[2023-05-04 03:20] VITALS: BP 108/69; PULSE 61
== END 2023-05-04 03:44 | disposition home or self-care (01) ==
LOC: EC 23:18
DX: E86.0 Dehydration (principal); R55 Syncope and collapse; F12.90 Cannabis use, unspecified, uncomplicated; Z87.891 Personal history of nicotine dependence
CPT/HCPCS: 36415; 71046; 80053; 84484; 85025; 93005; 96360; 99285

== ENCOUNTER → 2023-07-10 | Outpatient (CLI) | payer MEDICARE ==
--- NOTE | 2023-07-10 15:55 | US ---
EXAMINATION TYPE: US liver DATE OF EXAM: 07/10/2023 COMPARISON: NONE CLINICAL INDICATION: Male, 72 years old with history of B18.1 CHR VIRAL HEPATITIS B WITHOUT DELTA AGE NT; Patient denies any signs or symptoms at this time. TECHNIQUE: Multiple sonographic images of the right upper quadrant are obtained. FINDINGS: EXAM MEASUREMENTS: Liver Length: 10.5 cm Gallbladder Wall: 0.2 cm CBD: 0.5 cm Right Kidney: 11.9 x 6.2 x 5.2 cm Pancreas: Obscured by bowel gas Liver: Slightly heterogeneous parenchyma may be on a technical basis. No focal lesion seen. Gallbladder: A few small layering stones measuring up to 1.3 cm are seen. There is borderline hydropi c change of 4.1 cm wide. No wall thickening or surrounding fluid.Evidence for sonographic Hammonds's sign: No CBD: wnl Right Kidney: Small 1.6 cm parapelvic cyst versus mild pelviectasis. No calyceal dilatation to sugges t hydronephrosis. IMPRESSION: 1. Cholelithiasis with a few stones measuring up to 1.3 cm. Borderline hydropic gallbladder may be du e to fasting state. Follow-up ultrasound if right upper quadrant pain develops. 2. No biliary ductal dilatation.
== END | disposition home or self-care (01) ==
LOC: RADUSWWP 09:04
PROVIDERS: ATTEND Internal Medicine Gastroenterology
DX: B18.1 Chronic viral hepatitis B without delta-agent (principal); K80.20 Calculus of gallbladder without cholecystitis without obstruction
CPT/HCPCS: 76705

== ENCOUNTER → 2023-07-10 | Outpatient (CLI) | payer MEDICARE ==
[2023-07-10 16:52] LABS: HCT 44.2 % (39.6-50.0); HGB 14.8 g/dL (13.0-17.0); MCH 31.5 pg (27.0-32.0); MCHC 33.5 g/dL (32.0-37.0); Mean Platelet Volume 11.3 FL (9.5-12.2); NRBC Per 100 WBC 0 X 10*3/uL (0.00-0.01); Platelet Count 208 X 10*3/uL (140-440); RDW 12.4 % (11.5-14.5); WBC 9.24 X 10*3/uL (4.50-10.00)
[2023-07-10 17:27] LABS: Albumin 4.8 g/dL (3.8-4.9); Bilirubin, Conjugated 0.33 mg/dL (0.20-0.40); Bilirubin,Unconjugated 0.67 mg/dL (0.20-1.00); Globulin 2.4 g/dL (1.6-3.3); Total Protein 7.2 g/dL (6.2-8.2)
[2023-07-10 20:13] LABS: INR 1.04 sec (0.93-1.11); Prothrombin Time 11.2 sec (9.9-11.9)
[2023-07-11 15:53] LABS: Hepatitis B Virus DNA Not detected (Not detected); Hepatitis B Virus DNA, Quant <10 IU/mL (<10); Log HBV IU/mL <1.00 (<1.00)
== END | disposition home or self-care (01) ==
LOC: LABWHC1 10:27
PROVIDERS: ATTEND Internal Medicine Gastroenterology
DX: B18.1 Chronic viral hepatitis B without delta-agent (principal)
CPT/HCPCS: 36415; 80076; 85027; 85610; 87340; 87517

== ENCOUNTER → 2023-11-23 | Outpatient (CLI) | payer MEDICARE ==
[2023-11-23 16:31] LABS: ALT 12 U/L (10-49); AST 20 U/L (14-35); Chol/HDL Ratio 3.76 Ratio; LDL Cholesterol,Calculated 104.9 mg/dL (0.0-131.0)
== END | disposition home or self-care (01) ==
LOC: LABWHC1 11:00
PROVIDERS: ATTEND Internal Medicine Cardiovascular Disease
DX: E78.2 Mixed hyperlipidemia (principal)
CPT/HCPCS: 36415; 80061; 84450; 84460

== ENCOUNTER → 2024-02-18 | Outpatient (CLI) | payer MEDICARE ==
--- NOTE | 2024-02-18 09:51 | US ---
EXAMINATION TYPE: US liver DATE OF EXAM: 02/18/2024 COMPARISON: 07/10/23 CLINICAL INDICATION: Male, 73 years old with history of B18.1 CHRONIC VIRAL HEPATITIS B WITHOUT DELTA -AGEN; chronic hepatitis TECHNIQUE: Multiple sonographic images of the right upper quadrant are obtained. FINDINGS: EXAM MEASUREMENTS: Liver Length: 14.8 cm Gallbladder Wall: 0.20 cm CBD: 0.30 cm Right Kidney: 11.4 x 4.9 x 5.8 cm DIAMOND SIZER AND GRADER NOTES: Pancreas: Not well visualized due to bowel gas Liver: heterogeneous Gallbladder: Multiple mobile gallstones seen Evidence for sonographic Hammonds's sign: No CBD: wnl Right Kidney: hypoechoic area seen mid pole in the renal sinus measuring 1.6 x 1.6 x 2.0cm IMPRESSION: 1. Cholelithiasis. No acute cholecystitis changes. 2. Nonspecific hypoechoic area mid right kidney. Follow-up ultrasound in 3-6 months recommended.
== END | disposition home or self-care (01) ==
LOC: RADUSWWP 08:48
PROVIDERS: ATTEND Internal Medicine Gastroenterology
DX: K80.20 Calculus of gallbladder without cholecystitis without obstruction (principal); B18.1 Chronic viral hepatitis B without delta-agent
CPT/HCPCS: 76705

== ENCOUNTER → 2024-03-05 | Outpatient (CLI) | payer MEDICARE ==
[2024-03-05 15:11] LABS: HCT 43.9 % (39.6-50.0); HGB 14.6 g/dL (13.0-17.0); MCH 31.9 pg (27.0-32.0); MCHC 33.3 g/dL (32.0-37.0); MCV 96.1 FL (80.0-97.0); NRBC Per 100 WBC 0 X 10*3/uL (0.00-0.01); Platelet Count 202 X 10*3/uL (140-440); RBC 4.57 X 10*6/uL (4.40-5.60); RDW 12.6 % (11.5-14.5); WBC 6.57 X 10*3/uL (4.50-10.00)
[2024-03-05 16:26] LABS: Albumin 4.6 g/dL (3.8-4.9); Albumin/Globulin Ratio 1.92 Ratio (1.60-3.17); Bilirubin, Conjugated 0.26 mg/dL (0.20-0.40); Bilirubin,Unconjugated 0.44 mg/dL (0.20-1.00); Globulin 2.4 g/dL (1.6-3.3); Total Bilirubin 0.7 mg/dL (0.3-1.2)
[2024-03-05 17:39] LABS: Alpha Fetoprotein, Tumor Mkr <3.00 ng/mL (0.00-7.90)
[2024-03-05 18:26] LABS: Hepatitis B Surface Antigen Conf_React
[2024-03-06 13:10] LABS: Hepatitis B Virus DNA Not detected (Not detected); Hepatitis B Virus DNA, Quant <10 IU/mL (<10); Log HBV IU/mL <1.00 (<1.00)
== END | disposition home or self-care (01) ==
LOC: LABWHC1 10:34
PROVIDERS: ATTEND Internal Medicine Gastroenterology
DX: B18.1 Chronic viral hepatitis B without delta-agent (principal)
CPT/HCPCS: 36415; 80076; 82105; 85027; 87340; 87517

== ENCOUNTER → 2024-07-22 | Outpatient (CLI) | payer MEDICARE ==
[2024-07-22 16:45] LABS: ALT 14 U/L (10-49); AST 23 U/L (14-35); Chol/HDL Ratio 2.53 Ratio; VLDL Calculation 14.26 mg/dL (5.00-40.00)
== END | disposition home or self-care (01) ==
LOC: LABWHC1 09:35
PROVIDERS: ATTEND Internal Medicine Cardiovascular Disease
DX: E78.2 Mixed hyperlipidemia (principal)
CPT/HCPCS: 36415; 80061; 84450; 84460

== ENCOUNTER → 2024-09-05 | Outpatient (CLI) | payer MEDICARE ==
--- NOTE | 2024-09-05 17:07 | US ---
EXAMINATION TYPE: US liver DATE OF EXAM: 09/05/2024 COMPARISON: 02/18/2024 CLINICAL INDICATION: Male, 73 years old with history of B181 CHRONIC VIRAL HEP; Viral Hep. TECHNIQUE: Grayscale and color Doppler imaging of the right upper quadrant was performed. FINDINGS: EXAM MEASUREMENTS: Liver Length: 15.5 cm Gallbladder Wall: .3 cm CBD: .3 cm Right Kidney: 11.1 x 4.6 x 3.5 cm Pancreas: Obscured by bowel gas Liver: Increased attenuation Gallbladder: Multiple stones seen measuring up to 1.1 cm. No abnormal gallbladder distention, wall t hickening, or pericholecystic fluid. Evidence for sonographic Hammonds's sign: no CBD: wnl Right Kidney: No hydronephrosis or masses seen IMPRESSION: No sonographic evidence for hepatoma. Cholelithiasis with stones measuring up to 1.1 cm. [facility], Workstation: [email or web address], 09/05/2024 5:04 PM
[2024-09-05 18:44] LABS: HCT 40.4 % (39.6-50.0); HGB 13.6 g/dL (13.0-17.0); MCH 31.6 pg (27.0-32.0); MCHC 33.7 g/dL (32.0-37.0); MCV 93.7 FL (80.0-97.0); Mean Platelet Volume 10.9 FL (9.5-12.2); NRBC Per 100 WBC 0 X 10*3/uL (0.00-0.01); Platelet Count 191 X 10*3/uL (140-440); RBC 4.31 X 10*6/uL (4.40-5.60); RDW 12.2 % (11.5-14.5)
[2024-09-05 20:04] LABS: Albumin 4.5 g/dL (3.8-4.9); Albumin/Globulin Ratio 2.14 Ratio (1.60-3.17); Bilirubin, Conjugated 0.43 mg/dL (0.20-0.40); Bilirubin,Unconjugated 0.47 mg/dL (0.20-1.00); Globulin 2.1 g/dL (1.6-3.3); Total Bilirubin 0.9 mg/dL (0.3-1.2); Total Protein 6.6 g/dL (6.2-8.2)
[2024-09-05 21:25] LABS: Alpha Fetoprotein, Tumor Mkr <3.00 ng/mL (0.00-7.90)
[2024-09-05 21:26] LABS: Hepatitis B Surface Antigen Conf_React
== END | disposition home or self-care (01) ==
LOC: RADUSWWP 14:27
PROVIDERS: ATTEND Internal Medicine Gastroenterology
DX: B18.1 Chronic viral hepatitis B without delta-agent (principal); K80.20 Calculus of gallbladder without cholecystitis without obstruction
CPT/HCPCS: 76705; 80076; 82105; 85027; 87340; 87517

== ENCOUNTER → 2024-12-05 | Outpatient (CLI) | payer MEDICARE ==
[2024-12-05 11:07] LABS: African American GFR (CKD) >90 (>60 ml/min/1.73 sqM); Blood Urea Nitrogen 23 mg/dL (9-20); Non-African American GFR(CKD) 78 (>60 ml/min/1.73 sqM)
--- NOTE | 2024-12-06 14:28 | CT ---
EXAMINATION TYPE: CT chest w con DATE OF EXAM: 12/05/2024 11:49 AM COMPARISON: 10/09/2023 CLINICAL INDICATION: Male, 74 years old with history of R91.1 SOLITARY PULMONARY NODULE; [facility], Follow up for lung nodule. TECHNIQUE: CT chest after IV contrast. Coronal and sagittal reconstructions performed. Contrast used:100 ml mL of Isovue 300 with IV Contrast (None if empty) CT DLP: 457.8 mGycm, Automated exposure control for dose reduction was used. FINDINGS: Heart is upper limits of normal in size without pericardial. Three-vessel coronary artery calcificati ons are present in remarkable for coronary artery disease. Ectatic aorta unchanged at 3.7 cm. 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 The metatarsals a nd branching anatomy. Borderline to mildly enlarged caliber main right and left pulmonary arteries up to 2.6 cm suggests un derlying pulmonary arterial hypertension. Subpleural and fissural (possibly perilymphatic) nodularity and reticulations throughout. Subpleural microcystic change at the lower lobes with some associated bronchiolectasis at the lung bases. Kermit us punctate calcified nodules posterior lower lungs also redemonstrated. Background mild emphysematou s change. No suspicious or enlarging pulmonary nodules clearly identified. The tiny 3 mm nodule previ ously described left lower lobe remains unchanged. No consolidation or pleural effusion. Postsurgical change GE junction with a small hiatal hernia present. Suspect a left Cyrus fundoplicat ion wrap. Correlate for any recurrent symptoms. Otherwise, visualized upper abdomen shows no gross ab normality. Bones: Chronic anterior wedge deformity of L1. Trace grade were L1-L2 unchanged. IMPRESSION: 1. COPD with mild emphysema and stable changes of bilateral interstitial fibrosis characterized by driver bpleural reticulations, subpleural nodularity, and presence of subpleural microcystic change at the l ower lungs. Numerous tiny calcified nodules throughout the basilar lower lobes as well. Consider prio r granulomatous disease/sarcoidosis as a possibility. Fibrotic NSIP or early UIP pattern of lung inju ry not excluded at this time. 2. No suspicious or new pulmonary nodule is seen. 3. Three-vessel coronary artery calcifications. Possible underlying pulmonary arterial hypertension. 4. Postsurgical change at the GE junction with suspected slipped Cyrus fundoplication wrap and recur rent small hiatal hernia. If any recurrent symptoms, consider referring the patient back to their [facility]. [facility], , 12/06/2024 2:26 PM
== END | disposition home or self-care (01) ==
LOC: RADCTMAIN 10:35
PROVIDERS: ATTEND Internal Medicine Critical Care Medicine
DX: R91.1 Solitary pulmonary nodule (principal); J43.9 Emphysema, unspecified; J84.10 Pulmonary fibrosis, unspecified; J44.9 Chronic obstructive pulmonary disease, unspecified; I25.10 Atherosclerotic heart disease of native coronary artery without angina pectoris; R91.8 Other nonspecific abnormal finding of lung field; K44.9 Diaphragmatic hernia without obstruction or gangrene; Z98.890 Other specified postprocedural states
CPT/HCPCS: 82565; 84520; 71260; 36415; Q9967

== ENCOUNTER → 2025-03-03 | Outpatient (CLI) | payer MEDICARE ==
--- NOTE | 2025-03-03 08:08 | US ---
EXAMINATION TYPE: US liver DATE OF EXAM: 03/03/2025 COMPARISON: NONE CLINICAL INDICATION: Male, 74 years old with history of B18.1 CHRONIC VIRAL HEPATITIS B WITHOUT DELTA -AGEN; Patient denies any signs or symptoms. TECHNIQUE: Grayscale and color Doppler imaging of the right upper quadrant was performed. FINDINGS: EXAM MEASUREMENTS: Liver Length: 14.0 cm Gallbladder Wall: 0.3 cm CBD: 0.5 cm Right Kidney: 11.7 x 6.7 x 4.9 cm CHARGING PLUG PLACER NOTES:Difficult exam due to overlying bowel gas Pancreas: Obscured by bowel gas Liver: Limited visualization, otherwise slightly hyperechoic and coarsened in echo pattern. Gallbladder: Limited visualization, cholelithiasis. Evidence for sonographic Hammonds's sign: No CBD: Limited visualization, otherwise wnl Right Kidney: Limited visualization, otherwise wnl IMPRESSION: 1. Pattern of the liver is nonspecific but can be associated with hepatic steatosis or underlying hep atocellular disease. 2. Findings are suggestive of cholelithiasis. [facility], , 03/03/2025 8:05 AM
== END | disposition home or self-care (01) ==
LOC: RADUSWWP 06:53
PROVIDERS: ATTEND Internal Medicine Gastroenterology
DX: B18.1 Chronic viral hepatitis B without delta-agent (principal)
CPT/HCPCS: 76705